=== PATIENT | male | born 1960 | race Caucasian/White ===

== ENCOUNTER 2022-10-24 07:38 | Outpatient (CLI) | payer OTHER, SELFPAY ==
--- NOTE | 2022-10-24 09:16 | W.ANESCHARGE ---
Anesthesia Charges Start Date/Time Anesthesia Start Date: 10/24/22 Anesthesia Start Time: 08:45 Stop Date/Time Anesthesia Stop Date: 10/24/22 Anesthesia Stop Time: 09:14
--- NOTE | 2022-10-24 09:39 | W.ANESCHARGE ---
Anesthesia Charges Start Date/Time Anesthesia Start Date: 10/24/22 Anesthesia Start Time: 08:45 Stop Date/Time Anesthesia Stop Date: 10/24/22 Anesthesia Stop Time: 09:14
== END 2022-10-24 07:39 | disposition home or self-care (01) ==
LOC: OP CLINIC 07:39
PROVIDERS: PCP Student in an Organized Health Care Education/Training Program; Visit Provider Internal Medicine Gastroenterology
DX: Z12.11 Encounter for screening for malignant neoplasm of colon (principal); K63.5 Polyp of colon
CPT/HCPCS: 00811; 45385; 88305; J2704

== ENCOUNTER 2024-08-05 15:24 | Outpatient (CLI) | payer OTHER, SELFPAY ==
--- NOTE | 2024-08-05 16:00 | CRLHL7_ITS ---
For Patients: As a result of the Cures Act, medical imaging exams and procedure reports are released immediately into your electronic medical record. You may view this report before your referring provider. If you have questions, please contact your health care provider. INDICATION: Stimulator lead check radiograph. TECHNIQUE: Cervical spine three views. COMPARISON: None. IMPRESSION: Neurostimulator projects about the posterior central canal at the C2/3 level. Neurostimulator as imaged is intact. Minimal degenerative changes of the cervical spine. No acute or suspicious osseous abnormality evident. Dictated by Bubba Reyes MD @ 08/06/2024 4:45:50 PM (Electronically Signed)
== END 2024-08-05 15:25 | disposition home or self-care (01) ==
LOC: RAD 15:25
PROVIDERS: PCP Student in an Organized Health Care Education/Training Program; Visit Provider Registered Nurse
DX: M54.12 Radiculopathy, cervical region (principal)
CPT/HCPCS: 72040

== ENCOUNTER 2024-08-27 10:48 | Outpatient (CLI) | payer OTHER, SELFPAY | END 2024-08-27 10:49 | disposition home or self-care (01) | PROVIDERS: PCP Student in an Organized Health Care Education/Training Program; Visit Provider Family Medicine | DX: E78.5 Hyperlipidemia, unspecified (principal); I10 Essential (primary) hypertension; Z12.5 Encounter for screening for malignant neoplasm of prostate | CPT/HCPCS: 80048; 80061; G0103 ==